=== PATIENT | male | born 1960 | race American Indian/Alaskan Native ===

== ENCOUNTER 2017-02-04 17:40 | Emergency (ER) | payer SELFPAY ==
[2017-02-04] MEDS ORDERED: ALUM-MAG HYDROX-SIMETH 200-200-20MG/5ML PO ONE (19:59)
--- NOTE | 2017-02-04 20:03 | Emergency Department Report ---
Chief Complaint: Chest Pain Stated Complaint: CHEST PAIN Time Seen by Provider: 02/04/17 19:42 - HPI History of Present Illness: Patient is a 56-year-old black male who is presenting with atypical chest pain. Patient states he has a sharp pain in the left chest that occurs every 10 minutes. This is been going on since approximately 3 PM. Patient states he's had this pain before. Patient states he has a history of GERD been told this is the cause of the pain. Patient has had cardiac cath echocardiograms that have been negative in the past. Patient denies any shortness of breath diaphoresis. He some fruit earlier and thinks this may have been the cause of his increased acid levels potentially causing his pain - ROS Review of Systems: Review of systems are negative except for those elements in HPI - Exam Vital Signs: Vital Signs 02/04/17 02/04/17 17:59 19:57 Temperature 98.4 F Pulse Rate 88 Respiratory 18 18 Rate Blood Pressure 155/106 O2 Sat by Pulse 100 Oximetry Physical Exam: Focused physical exam patient has normal chest exam S1-S2 no murmurs gallops or rubs abdomen is soft nontender nondistended lungs are clear to auscultation MSE screening note: Focused history and physical exam performed. Due to findings the following was ordered: EKG appear to be within normal limits chest x-ray is been ordered patient was given Maalox 1 troponin will be ordered just to ensure that there is again no elevation of his troponin levels ED Disposition for MSE Condition: Stable Referrals: AIXA SHELL MD [Primary Care Provider] - 3-5 Days
[2017-02-04 21:11] VITALS: BP 160/92
--- NOTE | 2017-02-04 21:33 | XRay Report ---
FINAL REPORT PROCEDURE: PA and lateral chest x-ray TECHNIQUE: PA and lateral chest radiographs were obtained. CPT 40469 HISTORY: chest pain COMPARISON: No prior studies are available for comparison. FINDINGS: Heart: Normal. Mediastinum/Vessels: Normal. Lungs/Pleural space: Normal. Bony thorax: No acute osseous abnormality. Other: Calcification measuring 1.9 x 0.8 centimeters seen inferior to the left coracoid process may represent a loose body in the coracoid recess. IMPRESSION: No evidence of acute cardiac or pulmonary process..
== END 2017-02-04 21:08 | disposition home or self-care (01) ==
LOC: ED 17:40
DX: R07.89 Other chest pain (principal)
CPT/HCPCS: 36415; 71020; 84484; 93005; 93010; 99284

== ENCOUNTER 2020-09-23 15:41 | Inpatient (IN) | payer OTHER ==
[2020-09-23] MEDS ORDERED: ASPIRIN 325 MG TAB PO ONE ×2 (16:12→21:00)
--- NOTE | 2020-09-23 17:01 | XRay Report ---
CHEST 2 VIEWS INDICATION / CLINICAL INFORMATION: CP. COMPARISON: 06/22/2019 FINDINGS: SUPPORT DEVICES: None. HEART / MEDIASTINUM: No significant abnormality. LUNGS / PLEURA: Subtle pulmonary opacities are seen throughout both lower lobes. No pleural effusion or other finding identified. This represents interval change from prior chest radiographs. No pneumot horax. ADDITIONAL FINDINGS: No significant additional findings. IMPRESSION: 1. Mild bilateral pulmonary opacities, highly suspect for Covid pneumonia. Please correlate clinicall y. Signer Name: Claudette Meza MD Signed: 09/23/2020 4:56 PM Workstation Name: [id number]
[2020-09-23 17:04] LABS: Basophils % (Auto) 0.4 % (0.0-1.8); Hematocrit 49.1 % (35.5-45.6); Hemoglobin 16.4 gm/dl (11.8-15.2); Lymphocytes # (Auto) 1.5 K/mm3 (1.2-5.4); Lymphocytes % (Auto) 48.7 % (13.4-35.0); Mean Corpuscular HGB Conc 33 % (32-34); Mean Corpuscular Volume 80 fl (84-94); Monocytes # (Auto) 0.2 K/mm3 (0.0-0.8); Monocytes % (Auto) 7.2 % (0.0-7.3); Platelet Count 133 K/mm3 (140-440); Red Blood Count 6.11 M/mm3 (3.65-5.03)
[2020-09-23 17:28] LABS: Alanine Aminotransferase 47 units/L (7-56); Albumin 3.9 g/dL (3.9-5); BUN/Creatinine Ratio 13; Blood Urea Nitrogen 12 mg/dL (9-20); Calcium 8.7 mg/dL (8.4-10.2); Hemolysis Index 16
[2020-09-23] MEDS ORDERED: ACETAMINOPHEN 500 MG TAB PO ONE (21:57)
[2020-09-24] MEDS ORDERED: dexAMETHasone 4 MG/ML VIAL IV ONE (01:54)
[2020-09-24] MEDS ORDERED: SODIUM CHLORIDE 0.9% 1000 ML 1,000 ML IV ONE (01:57)
[2020-09-24] MEDS ORDERED: ONDANSETRON 4 MG/2 ML INJ IV ONE (01:57)
--- NOTE | 2020-09-24 02:41 | Emergency Department Report ---
ED General Adult HPI - General Chief complaint: Chest Pain Stated complaint: COVID+/CHEST DISCOMFORT Time Seen by Provider: 09/24/20 01:40 Source: patient Mode of arrival: Ambulatory Limitations: No Limitations - History of Present Illness Initial comments: Patient is 60 years old male with history of hypertension and GERD. Patient presented to the ER complaining of shortness of breath, cough, generalized weakness, nausea and body ache. Patient stated that symptoms been going on for 5 days. Patient stated that he tested positive yesterday for COVID-19. He also stated that his is admitted to this hospital for COVID-19 pneumonia. Severity scale (0 -10): 4 - Related Data Home Medications Medication Instructions Recorded Confirmed Last Taken No Known Home Medications [No 09/25/20 09/25/20 Unknown Reported Home Medications] Allergies Allergy/AdvReac Type Severity Reaction Status Date / Time Penicillins Allergy Hives Verified 06/22/19 13:53 ED Review of Systems ROS: Stated complaint: COVID+/CHEST DISCOMFORT Other details as noted in HPI Comment: All other systems reviewed and negative Constitutional: chills, fever Respiratory: cough, shortness of breath Cardiovascular: denies: chest pain, palpitations, dyspnea on exertion Gastrointestinal: nausea. denies: abdominal pain, vomiting Neurological: weakness ED Past Medical Hx - Past Medical History Previous Medical History?: Yes Hx GERD: Yes - Surgical History Past Surgical History?: Yes Additional Surgical History: hernia repair - Social History Smoking Status: Never Smoker Substance Use Type: None - Medications Home Medications: Home Medications Medication Instructions Recorded Confirmed Last Taken Type No Known Home Medications [No 09/25/20 09/25/20 Unknown History Reported Home Medications] ED Physical Exam - General Limitations: No Limitations General appearance: alert, in no apparent distress - Head Head exam: Present: atraumatic, normocephalic, normal inspection - Eye Eye exam: Present: normal appearance, PERRL - ENT ENT exam: Present: mucous membranes dry - Neck Neck exam: Present: normal inspection, full ROM. Absent: tenderness, mening ismus - Respiratory Respiratory exam: Present: rales, decreased breath sounds - Cardiovascular Cardiovascular Exam: Present: regular rate, normal rhythm, normal heart sounds - GI/Abdominal GI/Abdominal exam: Present: soft, normal bowel sounds. Absent: distended, tenderness, guarding, rebound, rigid, organomegaly, mass, bruit, pulsatile mass, hernia - Extremities Exam Extremities exam: Present: normal inspection, full ROM, normal capillary refill. Absent: tenderness - Back Exam Back exam: Present: normal inspection, full ROM. Absent: CVA tenderness (R), CVA tenderness (L) - Neurological Exam Neurological exam: Present: alert, oriented X3, CN II-XII intact, normal gait, reflexes normal. Absent: motor sensory deficit - Psychiatric Psychiatric exam: Present: normal mood - Skin Skin exam: Present: warm, dry, intact, normal color ED Course Vital Signs 09/23/20 09/23/20 09/24/20 16:09 22:15 02:03 Temperature 98.8 F Pulse Rate 94 H 82 Respiratory 20 16 14 Rate Blood Pressure 129/93 Blood Pressure [Left] O2 Sat by Pulse 97 98 Oximetry 09/24/20 09/24/20 09/24/20 02:16 02:30 02:46 Temperature Pulse Rate 79 79 79 Respiratory 20 15 19 Rate Blood Pressure 141/87 141/87 141/87 Blood Pressure [Left] O2 Sat by Pulse 95 96 97 Oximetry 09/24/20 09/24/20 09/24/20 02:55 03:00 03:16 Temperature Pulse Rate 79 73 Respiratory 18 13 19 Rate Blood Pressure 136/87 136/87 Blood Pressure [Left] O2 Sat by Pulse 97 95 96 Oximetry 09/24/20 09/24/20 09/24/20 03:30 03:46 04:00 Temperature Pulse Rate 74 76 77 Respiratory 16 16 16 Rate Blood Pressure 136/87 136/87 149/99 Blood Pressure [Left] O2 Sat by Pulse 96 97 96 Oximetry 09/24/20 09/24/20 09/24/20 04:16 04:30 04:46 Temperature Pulse Rate 72 75 75 Respiratory 14 16 16 Rate Blood Pressure 149/99 149/99 149/99 Blood Pressure [Left] O2 Sat by Pulse 96 95 96 Oximetry 09/24/20 09/24/20 09/24/20 05:00 05:16 05:30 Temperature Pulse Rate 72 84 85 Respiratory 15 14 20 Rate Blood Pressure 126/69 126/69 126/69 Blood Pressure [Left] O2 Sat by Pulse 97 96 96 Oximetry 09/24/20 09/24/20 09/24/20 05:46 06:00 08:00 Temperature Pulse Rate 84 78 Respiratory 16 15 Rate Blood Pressure 126/69 121/70 135/86 Blood Pressure [Left] O2 Sat by Pulse 97 96 96 Oximetry 09/24/20 09/24/20 09/24/20 08:16 08:30 08:46 Temperature Pulse Rate Respiratory Rate Blood Pressure 135/86 135/86 135/86 Blood Pressure [Left] O2 Sat by Pulse 95 96 98 Oximetry 09/24/20 09/24/20 09/24/20 09:00 09:16 09:30 Temperature Pulse Rate Respiratory Rate Blood Pressure 123/87 123/87 123/87 Blood Pressure [Left] O2 Sat by Pulse 97 97 96 Oximetry 09/24/20 09/24/20 09/24/20 09:46 10:00 10:16 Temperature Pulse Rate Respiratory Rate Blood Pressure 123/87 141/71 141/71 Blood Pressure [Left] O2 Sat by Pulse 95 96 93 Oximetry 09/24/20 09/24/20 09/24/20 10:30 10:46 11:00 Temperature Pulse Rate 72 79 Respiratory Rate Blood Pressure 141/71 141/71 131/89 Blood Pressure [Left] O2 Sat by Pulse 94 95 97 Oximetry 09/24/20 09/24/20 09/24/20 11:16 11:30 11:46 Temperature Pulse Rate Respiratory Rate Blood Pressure 131/89 131/89 131/89 Blood Pressure [Left] O2 Sat by Pulse 96 97 98 Oximetry 09/24/20 09/24/20 09/24/20 12:00 12:16 12:20 Temperature Pulse Rate 82 Respiratory 16 Rate Blood Pressure 131/89 131/89 Blood Pressure 131/52 [Left] O2 Sat by Pulse 97 97 97 Oximetry 09/24/20 09/24/20 09/24/20 12:30 12:46 13:00 Temperature Pulse Rate Respiratory Rate Blood Pressure 131/89 131/89 127/73 Blood Pressure [Left] O2 Sat by Pulse 97 98 96 Oximetry 09/24/20 09/24/20 09/24/20 13:16 13:30 13:46 Temperature Pulse Rate Respiratory Rate Blood Pressure 127/73 127/73 127/73 Blood Pressure [Left] O2 Sat by Pulse 96 96 96 Oximetry 09/24/20 09/24/20 09/24/20 14:00 14:16 14:30 Temperature Pulse Rate Respiratory Rate Blood Pressure 127/73 127/73 127/73 Blood Pressure [Left] O2 Sat by Pulse 96 97 95 Oximetry 09/24/20 09/24/20 09/24/20 14:46 15:00 15:16 Temperature Pulse Rate 79 Respiratory 21 Rate Blood Pressure 127/73 129/75 129/75 Blood Pressure [Left] O2 Sat by Pulse 96 96 96 Oximetry 09/24/20 09/24/20 09/24/20 15:30 15:46 16:00 Temperature Pulse Rate 86 74 74 Respiratory 15 18 10 L Rate Blood Pressure 129/75 129/75 134/77 Blood Pressure [Left] O2 Sat by Pulse 96 97 97 Oximetry 09/24/20 09/24/20 09/24/20 16:16 16:30 16:46 Temperature Pulse Rate 72 88 85 Respiratory 18 17 21 Rate Blood Pressure 134/77 134/77 134/77 Blood Pressure [Left] O2 Sat by Pulse 96 95 96 Oximetry 09/24/20 09/24/20 09/24/20 17:00 17:16 17:19 Temperature 97.4 F L Pulse Rate 80 74 77 Respiratory 17 18 16 Rate Blood Pressure 142/67 134/77 Blood Pressure 142/67 [Left] O2 Sat by Pulse 96 96 97 Oximetry 09/24/20 09/24/20 09/24/20 17:30 17:46 18:00 Temperature Pulse Rate 80 75 73 Respiratory 18 12 17 Rate Blood Pressure 134/77 134/77 144/68 Blood Pressure [Left] O2 Sat by Pulse 96 97 97 Oximetry 09/24/20 09/24/20 09/24/20 18:16 18:30 18:46 Temperature Pulse Rate 74 66 71 Respiratory 18 18 18 Rate Blood Pressure 144/68 144/68 144/68 Blood Pressure [Left] O2 Sat by Pulse 95 94 97 Oximetry 09/24/20 09/24/20 09/24/20 19:00 19:16 19:30 Temperature Pulse Rate 75 73 72 Respiratory 20 19 13 Rate Blood Pressure 135/75 135/75 135/75 Blood Pressure [Left] O2 Sat by Pulse 96 97 97 Oximetry 09/24/20 09/24/20 09/24/20 19:46 20:00 20:16 Temperature Pulse Rate 72 85 90 Respiratory 14 14 16 Rate Blood Pressure 135/75 139/75 139/75 Blood Pressure [Left] O2 Sat by Pulse 97 97 96 Oximetry 09/24/20 09/24/20 09/24/20 20:22 20:30 21:00 Temperature Pulse Rate 72 74 105 H Respiratory 19 22 15 Rate Blood Pressure 139/75 139/75 147/80 Blood Pressure [Left] O2 Sat by Pulse 96 97 98 Oximetry 09/24/20 09/24/20 09/24/20 21:30 22:00 22:30 Temperature Pulse Rate 80 106 H 80 Respiratory 13 19 21 Rate Blood Pressure 147/80 177/99 147/80 Blood Pressure [Left] O2 Sat by Pulse 96 96 93 Oximetry 09/24/20 09/24/20 09/25/20 23:00 23:30 00:00 Temperature Pulse Rate 72 84 78 Respiratory 13 18 20 Rate Blood Pressure 148/95 148/95 133/70 Blood Pressure [Left] O2 Sat by Pulse 97 95 95 Oximetry 09/25/20 09/25/20 09/25/20 00:30 01:00 01:30 Temperature Pulse Rate 68 75 74 Respiratory 17 21 19 Rate Blood Pressure 133/70 128/92 128/92 Blood Pressure [Left] O2 Sat by Pulse 96 96 96 Oximetry 09/25/20 09/25/20 09/25/20 02:00 02:30 03:00 Temperature Pulse Rate 68 61 68 Respiratory 18 16 15 Rate Blood Pressure 131/72 131/72 127/68 Blood Pressure [Left] O2 Sat by Pulse 97 96 96 Oximetry 09/25/20 09/25/20 09/25/20 03:30 04:01 04:30 Temperature Pulse Rate 66 68 65 Respiratory 15 16 15 Rate Blood Pressure 127/68 127/68 127/68 Blood Pressure [Left] O2 Sat by Pulse 96 97 95 Oximetry 09/25/20 09/25/20 09/25/20 05:01 05:31 06:01 Temperature Pulse Rate 66 63 69 Respiratory 16 16 15 Rate Blood Pressure 127/68 127/68 127/68 Blood Pressure [Left] O2 Sat by Pulse 97 94 94 Oximetry 09/25/20 09/25/20 09/25/20 06:31 07:01 07:31 Temperature Pulse Rate 63 60 61 Respiratory 13 12 17 Rate Blood Pressure 127/68 127/68 127/68 Blood Pressure [Left] O2 Sat by Pulse 95 94 96 Oximetry 09/25/20 08:00 Temperature Pulse Rate 58 L Respiratory 15 Rate Blood Pressure Blood Pressure [Left] O2 Sat by Pulse 96 Oximetry ED Medical Decision Making - Lab Data Result diagrams: 09/25/20 05:01 09/25/20 05:01 - EKG Data -: EKG Interpreted by Me EKG shows normal: sinus rhythm Rate: normal - EKG Data 09/24/20 02:[address] elevation suggesting of pericarditis. - Radiology Data Radiology results: report reviewed - Medical Decision Making Patient is 60 years old male with history of hypertension and GERD. Patient pr esented to the ER complaining of shortness of breath, cough, generalized weakness, nausea and body ache. Patient stated that symptoms been going on for 5 days. Patient stated that he tested positive yesterday for COVID-19. He also stated that his is admitted to this hospital for COVID-19 pneumonia. Chest x-ray showed bilateral infiltrate. Patient received Levaquin patient is allergic to penicillin. Patient also received normal saline and Zofran. I discussed the patient with Dr. Zamudio, he agreed to admit the patient to medical service for further management. Critical care attestation.: If time is entered above; I have spent that time in minutes in the direct care of this critically ill patient, excluding procedure time. ED Disposition Clinical Impression: Bilateral pneumonia, COVID-19, Acute nausea with nonbilious vomiting Disposition: OP ADMIT IP TO THIS HOSP Is pt being admited?: Yes Condition: Stable
[2020-09-24] MEDS ORDERED: ONDANSETRON 4 MG/2 ML INJ IV PRN (03:04)
[2020-09-24] MEDS ORDERED: IBUPROFEN 600 MG TAB PO PRN (03:04)
[2020-09-24] MEDS ORDERED: NALOXONE 0.4 MG/1 ML INJ IV PRN (03:04)
[2020-09-24] MEDS ORDERED: ACETAMINOPHEN 325 MG TAB PO PRN ×2 (03:04)
[2020-09-24] MEDS ORDERED: ALUM-MAG HYDROXIDE-SIMETHICONE 200-200-20MG/5ML ORAL LIQD 30 ML PO PRN (03:04)
[2020-09-24] MEDS ORDERED: MAGNESIUM HYDROXIDE (MOM) ORAL LIQD UDC PO PRN (03:04)
[2020-09-24] MEDS ORDERED: SENNOSIDES 8.6 MG TAB PO PRN (03:04)
[2020-09-24] MEDS ORDERED: METOCLOPRAMIDE 10 MG/2 ML INJ IV PRN (03:04)
--- NOTE | 2020-09-24 03:04 | History and Physical Report ---
History of Present Illness Date of examination: 09/24/20 Date of admission: 09/24/20 Chief complaint: shortness of breath Cough History of present illness: This is a 60 years old male who has a past medical history of hypertension and GERD. Presents to ED with a chief complaint of shortness of breath, cough, generalized weakness, nausea and body ache. Patient was sent by his doctor, Dr. Bryant to the hospital. Patient said he went to see his doctor and his doctor recommended that he comes to the hospital. Patient also reported his is in this hospital with Covid and the his grandson 14-year-old also had Covid but no symptoms. He said his symptom has been ongoing for a few days now. Patient is on room air alert oriented Not in Acute Distress but He Reports Generalized Weakness Feeling of Chest Tightness and His Not Feeling History of Self. I Rev iewed Patient Medical Record, Medication Record and Vital Signs. Patient Is Not in Acute Distress. Infectious Disease Consulted. Chest X-Ray Done and It Shows Bilateral Pneumonia. Patient Started on Antibiotic Empirically. Past History Past Medical History: GERD, hypertension Past Surgical History: No surgical history Social history: lives with family Medications and Allergies Allergies Allergy/AdvReac Type Severity Reaction Status Date / Time Penicillins Allergy Hives Verified 06/22/19 13:53 Home Medications Medication Instructions Recorded Confirmed Last Taken Type Omeprazole [PriLOSEC] 40 mg PO QDAY 11/21/14 11/21/14 1 Day Ago History ~11/20/14 Famotidine [Pepcid] 20 mg PO BID #28 tablet 02/04/17 Unknown Rx Omeprazole 40 mg PO DAILY #30 capsule. 02/04/17 Unknown Rx methOCARBAMOL [Robaxin TAB] 500 mg PO BID #10 tab 02/04/17 Unknown Rx traMADoL [Ultram] 50 mg PO Q6HR PRN #14 tablet 02/04/17 Unknown Rx Review of Systems Constitutional: fatigue, weakness, malaise Ears, nose, mouth and throat: sore throat, no epistaxis, no bleeding gums Cardiovascular: high blood pressure Respiratory: shortness of breath Gastrointestinal: no melena Rectal: no hemorrhoids Musculoskeletal: muscle weakness Integumentary: no rash, no pruritis Neurological: changes in smell/taste Psychiatric: anxiety, no suicidal ideation, no disorientation, no hallucinations Hematologic/Lymphatic: no easy bruising, no easy bleeding Allergic/Immunologic: no urticaria Exam - Constitutional Vitals: Temp Pulse Resp BP Pulse Ox 98.8 F 79 18 141/87 97 09/23/20 16:09 09/24/20 02:46 09/24/20 02:55 09/24/20 02:46 09/24/20 02:55 General appearance: Present: mild distress, well-nourished - EENT Eyes: Present: PERRL ENT: hearing intact, clear oral mucosa - Neck Neck: Present: supple, normal ROM - Respiratory Respiratory effort: normal Respiratory: bilateral: CTA - Cardiovascular Heart rate: 79 Heart Sounds: Present: S1 & S2. Absent: rub, click - Extremities Extremities: pulses symmetrical, No edema Peripheral Pulses: within normal limits - Abdominal General gastrointestinal: Present: soft, non-tender, non-distended, normal bowel sounds Male genitourinary: Present: normal - Integumentary Integumentary: Present: clear, warm, dry - Musculoskeletal Musculoskeletal: strength equal bilaterally, generalized weakness - Psychiatric Psychiatric: appropriate mood/affect, intact judgment & insight, cooperative - Neurologic Neurologic: CNII-XII intact, moves all extremities - Allied Health Allied health notes reviewed: nursing, PT HEART Score - HEART Score Troponin: Troponin T < 0.010 ng/mL (0.00-0.029) 09/23/20 23:50 Results - Labs CBC & Chem 7: 09/23/20 16:36 09/23/20 16:36 Labs: Abnormal lab results 09/23/20 09/23/20 Range/Units 16:36 16:36 WBC 3.1 L (4.5-11.0) K/mm3 RBC 6.11 H (3.65-5.03) M/mm3 Hgb 16.4 H (11.8-15.2) gm/dl Hct 49.1 H (35.5-45.6) % MCV 80 L (84-94) fl MCH 27 L (28-32) pg Plt Count 133 L (140-440) K/mm3 Lymph % (Auto) 48.7 H (13.4-35.0) % Seg Neutrophils # 1.3 L (1.8-7.7) K/mm3 Sodium 135 L (137-145) mmol/L Assessment and Plan - Patient Problems (1) Bilateral pneumonia Current Visit: Yes Status: Acute Plan to address problem: Respiratory care Continue abx therapy Consult ID Chest x-ray done showed mild bilateral pulmonary opacity highly suspicious of Covid pneumonia (2) COVID-19 Current Visit: Yes Status: Acute Plan to address problem: Continue airborne and contact isolation Ascorbic acid, zinc sulphate, and vitamin D Monitor inflammatory makers ID consult Encourage prone position and incentive spirometer Checks x-ray showed bilateral pneumonia Continue empiric antibiotics (3) Acute nausea with nonbilious vomiting Current Visit: Yes Status: Acute Plan to address problem: continue antiemetic (4) Thrombocytopenia Current Visit: Yes Status: Acute Plan to address problem: Monitor PLT level (5) DVT prophylaxis Current Visit: Yes Status: Acute Plan to address problem: heparin
[2020-09-24] MEDS ORDERED: traMADol 50 MG TAB PO PRN (03:12)
[2020-09-24] MEDS: cefTRIAXone/NS 1 GM/50 ML 1 GM/50 ML BAG IV SCH (04:30)
[2020-09-24] MEDS: AZITHROMYCIN/NS 500 MG/250 ML 500 MG/250 ML BAG IV SCH (04:30)
[2020-09-24 06:10] LABS: C-Reactive Protein 1.9 mg/dL (0.00-1.30)
[2020-09-24] MEDS ORDERED: NON-FORMULARY EACH (Omeprazole [Omeprazole] 40 MG Capsule.Dr) PO SCH (10:00)
[2020-09-24] MEDS ORDERED: FAMOTIDINE 20 MG TAB PO SCH (10:00)
[2020-09-24] MEDS: PANTOPRAZOLE 40 MG TAB PO SCH (12:07)
[2020-09-24] MEDS: dexAMETHasone 4 MG/ML VIAL IV SCH (12:07)
[2020-09-24] MEDS: ZINC SULFATE 220 MG CAP PO SCH (12:08)
[2020-09-24] MEDS: ASCORBIC ACID 500 MG TAB PO SCH (12:54)
[2020-09-24] MEDS: CHOLECALCIFEROL (VIT D3) 1000 UNIT (25 mcg) TAB PO SCH (12:54)
--- NOTE | 2020-09-24 18:08 | Electrocardiograph Report ---
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
[2020-09-24] MEDS: ENOXAPARIN 40 MG/0.4 ML INJ SUB-Q SCH (23:17)
[2020-09-25] MEDS: cefTRIAXone/NS 1 GM/50 ML 1 GM/50 ML BAG IV SCH (04:00)
[2020-09-25] MEDS: AZITHROMYCIN/NS 500 MG/250 ML 500 MG/250 ML BAG IV SCH (04:40)
[2020-09-25 05:40] LABS: Basophils % (Auto) 0.2 % (0.0-1.8); Hematocrit 44.2 % (35.5-45.6); Hemoglobin 14.7 gm/dl (11.8-15.2); Lymphocytes # (Auto) 0.8 K/mm3 (1.2-5.4); Lymphocytes % (Auto) 18.1 % (13.4-35.0); Mean Corpuscular HGB Conc 33 % (32-34); Mean Corpuscular Volume 81 fl (84-94); Monocytes # (Auto) 0.4 K/mm3 (0.0-0.8); Monocytes % (Auto) 9.8 % (0.0-7.3); Platelet Count 122 K/mm3 (140-440); Red Blood Count 5.46 M/mm3 (3.65-5.03); Red Cell Distribution Width 13.8 % (13.2-15.2)
[2020-09-25 06:00] LABS: Alanine Aminotransferase 49 units/L (7-56); Albumin 3.7 g/dL (3.9-5); BUN/Creatinine Ratio 13; Blood Urea Nitrogen 12 mg/dL (9-20); Calcium 8.7 mg/dL (8.4-10.2); Hemolysis Index 5
[2020-09-25] MEDS: CHOLECALCIFEROL (VIT D3) 1000 UNIT (25 mcg) TAB PO SCH (10:52)
[2020-09-25] MEDS: ASCORBIC ACID 500 MG TAB PO SCH (10:52)
[2020-09-25] MEDS: ZINC SULFATE 220 MG CAP PO SCH (10:52)
[2020-09-25] MEDS: PANTOPRAZOLE 40 MG TAB PO SCH (10:52)
[2020-09-25] MEDS: dexAMETHasone 4 MG/ML VIAL IV SCH (10:53)
--- NOTE | 2020-09-25 15:03 | Progress Note ---
Assessment and Plan - Patient Problems (1) Acute hypoxemic respiratory failure Current Visit: Yes Status: Acute Plan to address problem: Supplemental oxygen, pulse oximetry, nebulizer therapy, prone positioning while in bed, early ambulation, pulmonary toilet. (2) Obesity hypoventilation syndrome Current Visit: Yes Status: Acute Plan to address problem: Balanced diet, increase physical activity at discharge, outpatient pulmonary follow-up for sleep study, noninvasive positive pressure ventilation as clinically indicated. (3) Bilateral pneumonia Current Visit: Yes Status: Acute Plan to address problem: Pneumonia protocol: Chest x-ray, CBC, IV antibiotic therapy, supplemental oxygen, pulse oximetry, blood culture. (4) COVID-19 Current Visit: Yes Status: Acute Plan to address problem: Coronavirus protocol: IV antibiotic therapy, IV steroid therapy, supplemental oxygen, pulse oximetry, nebulizer therapy, prone positioning while in bed, prophylactic anticoagulation (5) DVT prophylaxis Current Visit: Yes Status: Acute Plan to address problem: SCD to bilateral lower extremities while in bed, prophylactic anticoagulation (6) Advance care planning Current Visit: Yes Status: Acute Plan to address problem: Disease education conducted, care plan discussed, diagnosis discussed, prognosis discussed, patient is full code. Patient knowledges understanding and agreement with care plan, +30 minutes. History Interval history: 60 YO Male HD #2 with bilateral pneumonia secondary to coronavirus infection, acute hypoxemic respiratory failure, obesity hypoventilation syndrome. Patient convalesced well overnight. Patient knowledges mild improvement in symptoms. However patient continues to acknowledge continued shortness of breath. Patient denies pain. No reported nursing events overnight. Hospitalist Physical - Constitutional Vitals: Temp Pulse Resp BP Pulse Ox 98.0 F 71 22 150/91 97 09/25/20 11:04 09/25/20 11:04 09/25/20 11:04 09/25/20 11:09/25/20 14:37 General appearance: Present: mild distress, obese - EENT Eyes: Present: PERRL ENT: hearing intact - Neck Neck: Present: supple - Respiratory Respiratory effort: labored Respiratory: bilateral: diminished, rhonchi - Cardiovascular Rhythm: regular Heart Sounds: Present: S1 & S2 - Extremities Extremity abnormal: edema Peripheral Pulses: within normal limits - Abdominal General gastrointestinal: soft, non-tender, non-distended - Integumentary Integumentary: Present: clear, dry - Psychiatric Psychiatric: appropriate mood/affect, cooperative - Neurologic Neurologic: CNII-XII intact HEART Score - HEART Score Troponin: Troponin T < 0.010 ng/mL (0.00-0.029) 09/23/20 23:50 Results - Labs CBC & Chem 7: 09/25/20 05:01 09/25/20 05:01 Labs: Laboratory Last Values WBC 4.3 K/mm3 (4.5-11.0) L 09/25/20 05:01 RBC 5.46 M/mm3 (3.65-5.03) H 09/25/20 05:01 Hgb 14.7 gm/dl (11.8-15.2) 09/25/20 05:01 Hct 44.2 % (35.5-45.6) 09/25/20 05:01 MCV 81 fl (84-94) L 09/25/20 05:01 MCH 27 pg (28-32) L 09/25/20 05:01 MCHC 33 % (32-34) 09/25/20 05:01 RDW 13.8 % (13.2-15.2) 09/25/20 05:01 Plt Count 122 K/mm3 (140-440) L 09/25/20 05:01 Lymph % (Auto) 18.1 % (13.4-35.0) 09/25/20 05:01 King % (Auto) 9.8 % (0.0-7.3) H 09/25/20 05:01 Eos % (Auto) 0.0 % (0.0-4.3) 09/25/20 05:01 Baso % (Auto) 0.2 % (0.0-1.8) 09/25/20 05:01 Lymph # (Auto) 0.8 K/mm3 (1.2-5.4) L 09/25/20 05:01 King # (Auto) 0.4 K/mm3 (0.0-0.8) 09/25/20 05:01 Eos # (Auto) 0.0 K/mm3 (0.0-0.4) 09/25/20 05:01 Baso # (Auto) 0.0 K/mm3 (0.0-0.1) 09/25/20 05:01 Seg Neutrophils % 71.9 % (40.0-70.0) H 09/25/20 05:01 Seg Neutrophils # 3.1 K/mm3 (1.8-7.7) 09/25/20 05:01 D-Dimer 147.25 ng/mlDDU (0-234) 09/24/20 04:35 Sodium 137 mmol/L (137-145) 09/25/20 05:01 Potassium 4.3 mmol/L (3.6-5.0) 09/25/20 05:01 Chloride 102.1 mmol/L (98-107) 09/25/20 05:01 Carbon Dioxide 24 mmol/L (22-30) 09/25/20 05:01 Anion Gap 15 mmol/L 09/25/20 05:01 BUN 12 mg/dL (9-20) 09/25/20 05:01 Creatinine 0.9 mg/dL (0.8-1.3) 09/25/20 05:01 Estimated GFR > 60 ml/min 09/25/20 05:01 BUN/Creatinine Ratio 13 % 09/25/20 05:01 Glucose 139 mg/dL (75-100) H 09/25/20 05:01 Calcium 8.7 mg/dL (8.4-10.2) 09/25/20 05:01 Ferritin 251.8 ng/mL (30.0-300.0) 09/24/20 05:00 Total Bilirubin 0.30 mg/dL (0.1-1.2) 09/25/20 05:01 AST 31 units/L (5-40) 09/25/20 05:01 ALT 49 units/L (7-56) 09/25/20 05:01 Alkaline Phosphatase 90 units/L (35-129) 09/25/20 05:01 Lactate Dehydrogenase 286 units/L (91-180) H 09/24/20 04:35 Troponin T < 0.010 ng/mL (0.00-0.029) 09/23/20 23:50 C-Reactive Protein 1.90 mg/dL (0.00-1.30) H 09/24/20 04:35 Total Protein 6.9 g/dL (6.3-8.2) 09/25/20 05:01 Albumin 3.7 g/dL (3.9-5) L 09/25/20 05:01 Albumin/Globulin Ratio 1.2 % 09/25/20 05:01 Procalcitonin < 0.05 ng/mL (<0.15) 09/24/20 04:35 Blood Type O POSITIVE 09/24/20 04:35 Antibody Screen Negative 09/24/20 04:35 Microbiology: Microbiology 09/24/20 03:00 Peripheral/Venous Blood Culture - Preliminary NO GROWTH AFTER 24 HOURS 09/24/20 03:10 Peripheral/Venous Blood Culture - Preliminary NO GROWTH AFTER 24 HOURS Urbano/IV: Voiding Method Toilet Active Medications - Current Medications Current Medications: Generic Name Dose Route Start Last Admin Trade Name Freq PRN Reason Stop Dose Admin Al Hydrox/Mg Hydrox/Simethicone 30 ml 09/24/20 03:04 Alum-Mag Hydroxide-Simethicone 345-086-53yv/5ml Oral Liqd 30 Ml PO Q4H PRN Indigestion Ascorbic Acid 500 mg 09/24/20 10:00 09/25/20 10:52 Ascorbic Acid 500 Mg Tab PO 500 mg QDAY ROSA Administration Cholecalciferol 1,000 unit 09/24/20 10:00 09/25/20 10:52 Cholecalciferol (Vit D3) 1000 Unit (25 Mcg) Tab PO 1,000 unit QDAY ROSA Administration Dexamethasone 6 mg 09/24/20 10:00 09/25/20 10:53 Dexamethasone 4 Mg/Ml Vial IV 10/03/20 10:01 6 mg DAILY ROSA Administration Enoxaparin Sodium 40 mg 09/24/20 22:00 09/24/20 23:17 Enoxaparin 40 Mg/0.4 Ml Inj SUB-Q 40 mg QDAY@2200 ROSA Administration Protocol Sodium Chloride 1,000 mls @ 42 mls/hr 09/24/20 03:15 Nacl 0.9% 1000 Ml IV DIRECT ROSA Azithromycin 500 mg in 250 mls @ 250 mls/hr 09/24/20 04:00 09/25/20 04:40 Zithromax/Ns IV 09/28/20 04:59 250 mls/hr Q24H ROSA Administration Protocol Ceftriaxone Sodium 1 gm in 50 mls @ 100 mls/hr 09/24/20 04:00 09/25/20 04:00 Rocephin/Ns 1 Gm/50 Ml IV 09/28/20 04:59 100 mls/hr Q24H ROSA Administration Protocol Ibuprofen 600 mg 09/24/20 03:04 Ibuprofen 600 Mg Tab PO Q6H PRN Pain, Mild (1-3) Magnesium Hydroxide 30 ml 09/24/20 03:04 Magnesium Hydroxide (Mom) Oral Liqd Udc PO Q4H PRN Constipation Metoclopramide HCl 10 mg 09/24/20 03:04 Metoclopramide 10 Mg/2 Ml Inj IV Q6H PRN Nausea And Vomiting Naloxone HCl 0.1 mg 09/24/20 03:04 Naloxone 0.4 Mg/1 Ml Inj IV Q2MIN PRN Res Rate </= 8 or 02 SAT < 92% Ondansetron HCl 4 mg 09/24/20 03:04 Ondansetron 4 Mg/2 Ml Inj IV Q8H PRN Nausea And Vomiting Pantoprazole Sodium 40 mg 09/24/20 10:00 09/25/20 10:52 Pantoprazole 40 Mg Tab PO 40 mg DAILY ROSA Administration Senna 8.6 mg 09/24/20 03:04 Sennosides 8.6 Mg Tab PO Q12HR PRN Constipation Sodium Chloride 10 ml 09/24/20 10:00 09/25/20 10:52 Sodium Chloride 0.9% 10 Ml Flush Syringe IV 10 ml BID ROSA Administration Tramadol HCl 50 mg 09/24/20 03:12 Tramadol 50 Mg Tab PO Q6HR PRN Pain, Moderate (4-6) Zinc Sulfate 220 mg 09/24/20 10:00 09/25/20 10:52 Zinc Sulfate 220 Mg Cap PO 220 mg QDAY ROSA Administration
[2020-09-25] MEDS: SODIUM CHLORIDE 0.9% 1000 ML 1,000 ML IV SCH (15:43)
[2020-09-25] MEDS: ENOXAPARIN 40 MG/0.4 ML INJ SUB-Q SCH (21:09)
[2020-09-26] MEDS: AZITHROMYCIN/NS 500 MG/250 ML 500 MG/250 ML BAG IV SCH (03:38)
[2020-09-26] MEDS: cefTRIAXone/NS 1 GM/50 ML 1 GM/50 ML BAG IV SCH (03:38)
[2020-09-26] MEDS: CHOLECALCIFEROL (VIT D3) 1000 UNIT (25 mcg) TAB PO SCH (09:17)
[2020-09-26] MEDS: ZINC SULFATE 220 MG CAP PO SCH (09:17)
[2020-09-26] MEDS: ASCORBIC ACID 500 MG TAB PO SCH (09:17)
[2020-09-26] MEDS: PANTOPRAZOLE 40 MG TAB PO SCH (09:17)
[2020-09-26] MEDS: dexAMETHasone 4 MG/ML VIAL IV SCH (09:18)
[2020-09-26] MEDS: SODIUM CHLORIDE 0.9% 1000 ML 1,000 ML IV SCH (19:01)
--- NOTE | 2020-09-26 20:16 | Progress Note ---
Assessment and Plan - Patient Problems (1) Acute hypoxemic respiratory failure Current Visit: Yes Status: Acute Plan to address problem: Supplemental oxygen, pulse oximetry, nebulizer therapy, prone positioning while in bed, early ambulation, pulmonary toilet. (2) Obesity hypoventilation syndrome Current Visit: Yes Status: Acute Plan to address problem: Balanced diet, increase physical activity at discharge, outpatient pulmonary follow-up for sleep study, noninvasive positive pressure ventilation as clinically indicated. (3) Bilateral pneumonia Current Visit: Yes Status: Acute Plan to address problem: Pneumonia protocol: Chest x-ray, CBC, IV antibiotic therapy, supplemental oxygen, pulse oximetry, blood culture. (4) COVID-19 Current Visit: Yes Status: Acute Plan to address problem: Coronavirus protocol: IV antibiotic therapy, IV steroid therapy, supplemental oxygen, pulse oximetry, nebulizer therapy, prone positioning while in bed, prophylactic anticoagulation (5) DVT prophylaxis Current Visit: Yes Status: Acute Plan to address problem: SCD to bilateral lower extremities while in bed, prophylactic anticoagulation (6) Advance care planning Current Visit: Yes Status: Acute Plan to address problem: Disease education conducted, care plan discussed, diagnosis discussed, prognosis discussed, patient is full code. Patient knowledges understanding and agreement with care plan, +30 minutes. History Interval history: 60 YO Male HD #3 with bilateral pneumonia secondary to coronavirus infection, acute hypoxemic respiratory failure, obesity hypoventilation syndrome. Patient convalesced well overnight. Patient again acknowledges improvement in symptoms. Patient has continued shortness of breath. Patient denies pain. No reported nursing events. Hospitalist Physical - Constitutional Vitals: Temp Pulse Resp BP Pulse Ox 98.4 F 67 22 154/79 93 09/26/20 17:21 09/26/20 17:21 09/26/20 17:21 09/26/20 17:21 09/26/20 17:21 General appearance: Present: mild distress, obese - EENT Eyes: Present: PERRL - Neck Neck: Present: supple - Respiratory Respiratory effort: normal Respiratory: bilateral: diminished, rhonchi - Cardiovascular Rhythm: regular Heart Sounds: Present: S1 & S2 - Extremities Extremities: no ischemia Peripheral Pulses: within normal limits - Abdominal General gastrointestinal: soft, non-tender, non-distended - Integumentary Integumentary: Present: clear, dry - Psychiatric Psychiatric: appropriate mood/affect, cooperative - Neurologic Neurologic: CNII-XII intact HEART Score - HEART Score Troponin: Troponin T < 0.010 ng/mL (0.00-0.029) 09/23/20 23:50 Results - Labs CBC & Chem 7: 09/25/20 05:01 09/25/20 05:01 Labs: Laboratory Last Values WBC 4.3 K/mm3 (4.5-11.0) L 09/25/20 05:01 RBC 5.46 M/mm3 (3.65-5.03) H 09/25/20 05:01 Hgb 14.7 gm/dl (11.8-15.2) 09/25/20 05:01 Hct 44.2 % (35.5-45.6) 09/25/20 05:01 MCV 81 fl (84-94) L 09/25/20 05:01 MCH 27 pg (28-32) L 09/25/20 05:01 MCHC 33 % (32-34) 09/25/20 05:01 RDW 13.8 % (13.2-15.2) 09/25/20 05:01 Plt Count 122 K/mm3 (140-440) L 09/25/20 05:01 Lymph % (Auto) 18.1 % (13.4-35.0) 09/25/20 05:01 Mora % (Auto) 9.8 % (0.0-7.3) H 09/25/20 05:01 Eos % (Auto) 0.0 % (0.0-4.3) 09/25/20 05:01 Baso % (Auto) 0.2 % (0.0-1.8) 09/25/20 05:01 Lymph # (Auto) 0.8 K/mm3 (1.2-5.4) L 09/25/20 05:01 Mora # (Auto) 0.4 K/mm3 (0.0-0.8) 09/25/20 05:01 Eos # (Auto) 0.0 K/mm3 (0.0-0.4) 09/25/20 05:01 Baso # (Auto) 0.0 K/mm3 (0.0-0.1) 09/25/20 05:01 Seg Neutrophils % 71.9 % (40.0-70.0) H 09/25/20 05:01 Seg Neutrophils # 3.1 K/mm3 (1.8-7.7) 09/25/20 05:01 D-Dimer 147.25 ng/mlDDU (0-234) 09/24/20 04:35 Sodium 137 mmol/L (137-145) 09/25/20 05:01 Potassium 4.3 mmol/L (3.6-5.0) 09/25/20 05:01 Chloride 102.1 mmol/L (98-107) 09/25/20 05:01 Carbon Dioxide 24 mmol/L (22-30) 09/25/20 05:01 Anion Gap 15 mmol/L 09/25/20 05:01 BUN 12 mg/dL (9-20) 09/25/20 05:01 Creatinine 0.9 mg/dL (0.8-1.3) 09/25/20 05:01 Estimated GFR > 60 ml/min 09/25/20 05:01 BUN/Creatinine Ratio 13 % 09/25/20 05:01 Glucose 139 mg/dL (75-100) H 09/25/20 05:01 Calcium 8.7 mg/dL (8.4-10.2) 09/25/20 05:01 Ferritin 251.8 ng/mL (30.0-300.0) 09/24/20 05:00 Total Bilirubin 0.30 mg/dL (0.1-1.2) 09/25/20 05:01 AST 31 units/L (5-40) 09/25/20 05:01 ALT 49 units/L (7-56) 09/25/20 05:01 Alkaline Phosphatase 90 units/L (35-129) 09/25/20 05:01 Lactate Dehydrogenase 286 units/L (91-180) H 09/24/20 04:35 Troponin T < 0.010 ng/mL (0.00-0.029) 09/23/20 23:50 C-Reactive Protein 1.90 mg/dL (0.00-1.30) H 09/24/20 04:35 Total Protein 6.9 g/dL (6.3-8.2) 09/25/20 05:01 Albumin 3.7 g/dL (3.9-5) L 09/25/20 05:01 Albumin/Globulin Ratio 1.2 % 09/25/20 05:01 Procalcitonin < 0.05 ng/mL (<0.15) 09/24/20 04:35 Blood Type O POSITIVE 09/24/20 04:35 Antibody Screen Negative 09/24/20 04:35 Microbiology: Microbiology 09/24/20 03:00 Peripheral/Venous Blood Culture - Preliminary NO GROWTH AFTER 48 HOURS 09/24/20 03:10 Peripheral/Venous Blood Culture - Preliminary NO GROWTH AFTER 48 HOURS Urbano/IV: Voiding Method Urinal Active Medications - Current Medications Current Medications: Generic Name Dose Route Start Last Admin Trade Name Freq PRN Reason Stop Dose Admin Al Hydrox/Mg Hydrox/Simethicone 30 ml 09/24/20 03:04 Alum-Mag Hydroxide-Simethicone [id number]/5ml Oral Liqd 30 Ml PO Q4H PRN Indigestion Ascorbic Acid 500 mg 09/24/20 10:00 09/26/20 09:17 Ascorbic Acid 500 Mg Tab PO 500 mg QDAY ROSA Administration Cholecalciferol 1,000 unit 09/24/20 10:00 09/26/20 09:17 Cholecalciferol (Vit D3) 1000 Unit (25 Mcg) Tab PO 1,000 unit QDAY ROSA Administration Dexamethasone 6 mg 09/24/20 10:00 09/26/20 09:18 Dexamethasone 4 Mg/Ml Vial IV 10/03/20 10:01 6 mg DAILY ROSA Administration Enoxaparin Sodium 40 mg 09/24/20 22:00 09/25/20 21:09 Enoxaparin 40 Mg/0.4 Ml Inj SUB-Q 40 mg QDAY@2200 ROSA Administration Protocol Sodium Chloride 1,000 mls @ 42 mls/hr 09/24/20 03:15 09/26/20 19:01 Nacl 0.9% 1000 Ml IV 42 mls/hr DIRECT ROSA Administration Azithromycin 500 mg in 250 mls @ 250 mls/hr 09/24/20 04:00 09/26/20 03:38 Zithromax/Ns IV 09/28/20 04:59 250 mls/hr Q24H ROSA Administration Protocol Ceftriaxone Sodium 1 gm in 50 mls @ 100 mls/hr 09/24/20 04:00 09/26/20 03:38 Rocephin/Ns 1 Gm/50 Ml IV 09/28/20 04:59 100 mls/hr Q24H ROSA Administration Protocol Ibuprofen 600 mg 09/24/20 03:04 Ibuprofen 600 Mg Tab PO Q6H PRN Pain, Mild (1-3) Magnesium Hydroxide 30 ml 09/24/20 03:04 Magnesium Hydroxide (Mom) Oral Liqd Udc PO Q4H PRN Constipation Metoclopramide HCl 10 mg 09/24/20 03:04 Metoclopramide 10 Mg/2 Ml Inj IV Q6H PRN Nausea And Vomiting Naloxone HCl 0.1 mg 09/24/20 03:04 Naloxone 0.4 Mg/1 Ml Inj IV Q2MIN PRN Res Rate </= 8 or 02 SAT < 92% Ondansetron HCl 4 mg 09/24/20 03:04 Ondansetron 4 Mg/2 Ml Inj IV Q8H PRN Nausea And Vomiting Pantoprazole Sodium 40 mg 09/24/20 10:00 09/26/20 09:17 Pantoprazole 40 Mg Tab PO 40 mg DAILY ROSA Administration Senna 8.6 mg 09/24/20 03:04 Sennosides 8.6 Mg Tab PO Q12HR PRN Constipation Sodium Chloride 10 ml 09/24/20 10:00 09/26/20 09:19 Sodium Chloride 0.9% 10 Ml Flush Syringe IV 10 ml BID ROSA Administration Tramadol HCl 50 mg 09/24/20 03:12 Tramadol 50 Mg Tab PO Q6HR PRN Pain, Moderate (4-6) Zinc Sulfate 220 mg 09/24/20 10:00 09/26/20 09:17 Zinc Sulfate 220 Mg Cap PO 220 mg QDAY ROSA Administration
[2020-09-26] MEDS: ENOXAPARIN 40 MG/0.4 ML INJ SUB-Q SCH (21:47)
[2020-09-27] MEDS: AZITHROMYCIN/NS 500 MG/250 ML 500 MG/250 ML BAG IV SCH (03:28)
[2020-09-27] MEDS: cefTRIAXone/NS 1 GM/50 ML 1 GM/50 ML BAG IV SCH (03:41)
[2020-09-27] MEDS: dexAMETHasone 4 MG/ML VIAL IV SCH (09:17)
[2020-09-27] MEDS: ZINC SULFATE 220 MG CAP PO SCH (09:17)
[2020-09-27] MEDS: PANTOPRAZOLE 40 MG TAB PO SCH (09:17)
[2020-09-27] MEDS: ASCORBIC ACID 500 MG TAB PO SCH (09:17)
[2020-09-27] MEDS: CHOLECALCIFEROL (VIT D3) 1000 UNIT (25 mcg) TAB PO SCH (09:17)
--- NOTE | 2020-09-27 13:20 | Discharge Summary ---
Providers - Providers Date of Admission: 09/24/20 02:42 Attending physician: KIM RUIZ Primary care physician: MARISOL ZARAGOZA Hospitalization Condition: Stable Disposition: DC-30 STILL A PATIENT - Discharge Diagnoses (1) Acute hypoxemic respiratory failure Status: Acute (2) Obesity hypoventilation syndrome Status: Acute (3) Bilateral pneumonia Status: Acute (4) COVID-19 Status: Acute (5) DVT prophylaxis Status: Acute (6) Advance care planning Status: Acute Exam - Constitutional Vitals: Temp Pulse Resp BP Pulse Ox 98.4 F 67 18 154/79 96 09/26/20 17:21 09/26/20 17:21 09/27/20 00:00 09/26/20 17:21 09/27/20 00:00 Plan Follow up with: MARISOL ZARAGOZA MD [Primary Care Provider] - 3-5 Days Prescriptions: Prednisone [predniSONE 10 mg (6-Day Pack, 21 Tabs)] 10 mg PO .TAPER #1 tab.ds.pk Ascorbic Acid [Vitamin C] 0 mg PO BID #28 tablet Cholecalciferol Vit D3 [Vitamin D3 1,000 UNIT TAB] 1,000 unit PO QDAY #14 tablet Zinc Sulfate 220 mg PO BID #28 capsule Azithromycin [Zithromax TAB] 250 mg PO QDAY #6 tablet
[2020-09-27 13:39] VITALS: BP 167/81
== END 2020-09-27 15:19 | disposition home or self-care (01) | DRG 177 ==
LOC: ED 15:41 → 3A 09-24 02:42
PROVIDERS: ADMIT Internal Medicine Geriatric Medicine; ATTEND Internal Medicine
DX: U07.1 COVID-19 (principal); J96.01 Acute respiratory failure with hypoxia; J12.82 Pneumonia due to coronavirus disease 2019; E66.2 Morbid (severe) obesity with alveolar hypoventilation; Z68.45 Body mass index [BMI] 70 or greater, adult; D69.6 Thrombocytopenia, unspecified; I10 Essential (primary) hypertension; K21.9 Gastro-esophageal reflux disease without esophagitis; Z88.0 Allergy status to penicillin; Z79.899 Other long term (current) drug therapy
CPT/HCPCS: 36415; 71046; 80053; 82728; 83520; 83615; 84145; 84484; 85025; 85379; 86140; 86850; 86900; 86901; 87040; 93005; G0378; J0456; J0696; J1100; J1650; J1956; J2405; J7030; U0003